=== PATIENT | male | born 1970 | race Hispanic/Latino ===

== ENCOUNTER 2020-03-31 19:17 | Emergency (ER) | payer SELFPAY ==
[2020-03-31] MEDS ORDERED: FAMOTIDINE 20 MG/2 ML VIAL IV ONE (19:52)
[2020-03-31] MEDS ORDERED: MORPHINE 2 MG/ML SYR ONE (19:52)
[2020-03-31] MEDS ORDERED: ONDANSETRON 4 MG/2 ML VIAL ONE (19:52)
[2020-03-31] MEDS ORDERED: NA CHLORIDE 0.9% 1,000 ML ONE ×3 (19:52→22:36)
[2020-03-31 20:21] LABS: Absolute Lymphocytes (CBC) 0.9 K/uL (0.7-4.9); Basophils % 0.2 % (0-1.3); Hematocrit 40.6 % (39.6-49.0); Lymphocytes % 6.4 % (15.3-44.8); RBC Red Blood Cell Count 4.83 M/uL (4.33-5.43)
--- NOTE | 2020-03-31 21:16 | RAD REPORT ---
EXAM DESCRIPTION: CT - Abdomen Pelvis W Contrast - 03/31/2020 9:00 pm CLINICAL HISTORY: Abdominal pain COMPARISON: none. TECHNIQUE: Computed axial tomography of the abdomen pelvis was obtained. 100 cc Isovue-300 was admin istered intravenously. Oral contrast was not requested which limits evaluation of bowel. All CT scans are performed using dose optimization technique as appropriate and may include automated exposure control or mA/KV adjustment according to patient size. FINDINGS: Marked stranding adjacent to the pancreatic head, neck and proximal body. Small amount of ill-defined fluid. The pancreatic head is inhomogeneous. 18 millimeter area of low signal within the pancreatic tail may indicate a small area of necrosis. Cholecystectomy. Upper abdominal varices Liver, spleen, adrenals and kidneys unremarkable No evidence diverticulitis. IMPRESSION: Marked pancreatitis
[2020-03-31 21:49] LABS: ALT/SGPT 73 U/L (12-78); AST/SGOT 121 U/L (15-37); Albumin 4.2 g/dL (3.4-5.0); Alkaline Phosphatase 162 U/L (45-117); BUN Blood Urea Nitrogen 10 mg/dL (7-18); Bicarbonate 24 mmol/L (21-32); Bilirubin Direct 0.7 mg/dL (0-0.2); Bilirubin Total 1.2 mg/dL (0.2-1.0); Glucose Level 349 mg/dL (74-106); Lipase 2486 U/L (73-393); Potassium 4.3 mmol/L (3.5-5.1); Protein, Total 8.4 g/dL (6.4-8.2); Sodium Level 136 mmol/L (136-145)
--- NOTE | 2020-03-31 22:04 | ER ---
Nurse's Notes [facility] Name: Robert Mcmahan Age: 49 yrs Sex: Male : 1970 Arrival Date: 03/31/2020 Time: 19:21 Bed 6 Private MD: Diagnosis: Acute pancreatitis Presentation: 03/31 19:29 Chief complaint: Patient states: Upper abd. pain with N/V began this morning. History ll1 of pancreatitis. Coronavirus screen: Client denies travel out of the [place] in the last 14 days. nausea, At this time, the client does not indicate any symptoms associated with coronavirus-19. Ebola Screen: Patient denies travel to an Ebola-affected area in the 21 days before illness onset. Initial Sepsis Screen: Does the patient meet any 2 criteria? No. Patient's initial sepsis screen is negative. Does the patient have a suspected source of infection? Yes: Acute abdominal pain. Risk Assessment: Do you want to hurt yourself or someone else? Patient reports no desire to harm self or others. Onset of symptoms was March 31, 2020. 19:29 Method Of Arrival: Ambulatory ll1 19:29 Acuity: TRAE 3 ll1 Historical: - Allergies: 19:31 No Known Allergies; ll1 - PMHx: 19:31 Pancreatitis; diabetic; ll1 - PSHx: 19:31 Cholecystectomy; Appendectomy; ll1 - Immunization history:: Flu vaccine is not up to date. - Social history:: Smoking status: Patient denies any tobacco usage or history of. Screenin:53 Abuse screen: Denies threats or abuse. Nutritional screening: No deficits noted. ea Tuberculosis screening: No symptoms or risk factors identified. Fall Risk IV access (20 points). Assessment: 19:54 General: Appears uncomfortable, Behavior is appropriate for age. Pain: Complains of ea pain in epigastric area. Neuro: Level of Consciousness is awake, alert, obeys commands, Oriented to person, place, time, situation. Cardiovascular: Patient's skin is warm and dry. Respiratory: Airway is patent Respiratory effort is even, unlabored, Respiratory pattern is regular, symmetrical. GI: Bowel sounds present X 4 quads. Abd is soft and non tender X 4 quads. Derm: Skin is pink, warm \T\ dry. 20:41 Reassessment: Patient and/or family updated on plan of care and expected duration. Pain ea level reassessed. Patient is alert, oriented x 3, equal unlabored respirations, skin warm/dry/pink. 21:43 Reassessment: Patient and/or family updated on plan of care and expected duration. Pain ea level reassessed. Patient is alert, oriented x 3, equal unlabored respirations, skin warm/dry/pink. 22:50 Reassessment: Pt resting with eyes closed, respirations even and unlabored, chest ea expansions even and symmetrical. No s/s of pain or discomfort at this time. 23:20 Reassessment: Report given to Noah at [facility]. Awaiting on EMS for transportation. ea 04/01 00:00 Reassessment: Patient and/or family updated on plan of care and expected duration. Pain ea level reassessed. Patient is alert, oriented x 3, equal unlabored respirations, skin warm/dry/pink. Pt transferred to [facility] ED via stretcher per [facility]. Pt tolerating well. Vital Signs: 03/31 19:29 BP 132 / 79; Pulse 86; Resp 17; Temp 97.9; Pulse Ox 100% ; Weight 104.33 kg (R); Height ll1 5 ft. 11 in. (180.34 cm); Pain 9/10; 20:41 BP 124 / 81; Pulse 88; Resp 18; Pulse Ox 97% ; ea 21:42 BP 131 / 85; Pulse 96; Resp 18; Pulse Ox 96% on R/A; ea 22:00 BP 132 / 80; Pulse 87; Resp 18; Pulse Ox 97% on R/A; ea 23:00 BP 125 / 75; Pulse 92; Resp 18; Temp 98; Pulse Ox 94% ; ea 19:29 Body Mass Index 32.08 (104.33 kg, 180.34 cm) ll1 ED Course: 19:21 Patient arrived in ED. cl3 19:25 Isreal Murphy PA is PHCP. cp 19:25 Cas Candelario MD is Attending Physician. cp 19:30 Triage completed. ll1 19:30 Arm band placed on Patient placed in an exam room, on a stretcher. ll1 19:35 Mary Lora, FRANCINE is Primary Nurse. ea 19:42 Inserted saline lock: 20 gauge in right antecubital area, using aseptic technique. ea Blood collected. 19:53 Patient has correct armband on for positive identification. Bed in low position. Call ea light in reach. Side rails up X2. Pulse ox on. NIBP on. 21:00 CT Abd/Pelvis - IV Contrast Only In Process Unspecified. EDMS 22:02 Initiated transfer at [facility] with Alissa Centeno. tt3 22:36 Alissa called back with their physician to speak with MOJGAN Franco, regarding the tt3 transfer request. 23:00 Alissa Centeno called back with administrative approval. The accepting physician is Dr. franc Escobedo. The pt is going to Bed 1505. Face sheet faxed to per Alissa's request. Nurse to call report to [phone]. 23:24 No provider procedures requiring assistance completed. Patient transferred, IV remains ea in place. Administered Medications: Discontinued: NS 0.9% 1000 ml IV at 125 ml/hr continuous 19:45 Drug: Pepcid 20 mg Route: IVP; Site: right antecubital; ea 20:55 Follow up: Response: No adverse reaction ea 19:46 Drug: Zofran (Ondansetron) 4 mg Route: IVP; Site: right antecubital; ea 20:55 Follow up: Response: No adverse reaction ea 19:48 Drug: morphine 2 mg {Note: rass 0.} Route: IVP; Site: right antecubital; ea 20:55 Follow up: Response: No adverse reaction; Pain is decreased ea 19:50 Drug: NS 0.9% 1000 ml Route: IV; Rate: 1 bolus; Site: right antecubital; ea 20:55 Follow up: Response: No adverse reaction; IV Status: Completed infusion; IV Intake: ea 1000ml 22:17 Drug: NS 0.9% 1000 ml Route: IV; Rate: 1 bolus; Site: right antecubital; ea 23:08 Follow up: Response: No adverse reaction; IV Status: Completed infusion; IV Intake: ea 1000ml 22:17 Drug: Zosyn 3.375 grams Route: IVPB; Infused Over: 60 mins; Site: right antecubital; ea 23:23 Follow up: Response: No adverse reaction; IV Status: Completed infusion; IV Intake: ea 100ml 22:25 Drug: NS 0.9% 1000 ml Route: IV; Rate: 125 ml/hr; Site: right antecubital; rr5 22:26 Drug: morphine 4 mg {Note: rass 0.} Route: IVP; Site: right antecubital; rr5 23:08 Follow up: Response: No adverse reaction ea 22:54 Drug: Lactated Ringers Solution 1000 ml Route: IV; Rate: 250 ml/hr; Site: right ea antecubital; 04/01 00:02 Follow up: Response: No adverse reaction; IV Status: Infusion continued upon transfer ea Intake: 03/31 20:55 IV: 1000ml; Total: 1000ml. ea 23:08 IV: 1000ml; Total: 2000ml. ea 23:23 IV: 100ml; Total: 2100ml. ea Output: 23:20 Urine: 800ml (Voided); Total: 800ml. rr5 Outcome: 22:03 ER care complete, transfer ordered by MD. rex 23:24 Instructed on the need for transfer, Demonstrated understanding of instructions. ea 04/01 00:00 Transferred by ground EMS to [facility], Transfer form completed. ea Condition: stable 00:02 Patient left the ED. ea Signatures: Dispatcher [employer] EDMS Isreal Murphy PA PA cp Antunez, Elena, RN RN ea Roque, Raymond, RN RN rr5 Jean Claude Friedman cl3 Chi Friedman RN RN ll1 Hugh Parry tt3 Corrections: (The following items were deleted from the chart) 03/31 19:52 19:48 morphine 2 mg IVP in right antecubital ea ea
--- NOTE | 2020-03-31 22:04 | EDPHYS ---
Physician Documentation [facility] Name: Robert Mcmahan Age: 49 yrs Sex: Male : 1970 Arrival Date: 03/31/2020 Time: 19:21 Bed 6 Private MD: ED Physician Cas Candelario HPI: 03/31 19:38 This 49 yrs old Male presents to ER via Ambulatory with complaints of cp Abdominal Pain. 19:38 The patient presents with abdominal pain in the upper abdomen. Onset: The cp symptoms/episode began/occurred this morning. The symptoms do not radiate. Associated signs and symptoms: Pertinent positives: nausea and vomiting, Pertinent negatives: chest pain, constipation, diarrhea, dysuria, fever, hematuria, shortness of breath. Severity of pain: in the emergency department the pain is unchanged. The patient has experienced similar episodes in the past, multiple times, today's symptoms are similar, to when the patient was apparently diagnosed with pancreatitis. Historical: - Allergies: 19:31 No Known Allergies; ll1 - PMHx: 19:31 Pancreatitis; diabetic; ll1 - PSHx: 19:31 Cholecystectomy; Appendectomy; ll1 - Immunization history:: Flu vaccine is not up to date. - Social history:: Smoking status: Patient denies any tobacco usage or history of. ROS: 19:40 Eyes: Negative for injury, pain, redness, and discharge. cp 19:40 Constitutional: Negative for body aches, chills, fever, poor PO intake. 19:40 Cardiovascular: Negative for chest pain. 19:40 Respiratory: Negative for cough, shortness of breath, wheezing. 19:40 Abdomen/GI: Positive for abdominal pain, nausea and vomiting, Negative for diarrhea, constipation, black/tarry stool, rectal bleeding. 19:40 Back: Negative for pain at rest, pain with movement. 19:40 Neuro: Negative for altered mental status, headache, weakness. 19:40 All other systems are negative. Exam: 19:41 Head/Face: Normocephalic, atraumatic. cp 19:41 Constitutional: The patient appears in no acute distress, alert, awake, non-diaphoretic, non-toxic, well developed, well nourished. 19:41 Eyes: Periorbital structures: appear normal, Conjunctiva: normal, no exudate, no injection, Sclera: no appreciated abnormality, Lids and lashes: appear normal, bilaterally. 19:41 ENT: External ear(s): are unremarkable, Nose: is normal, Mouth: Lips: moist, Oral mucosa: moist, Posterior pharynx: Airway: no evidence of obstruction, patent. 19:41 Chest/axilla: Inspection: normal, Palpation: is normal, no crepitus, no tenderness. 19:41 Cardiovascular: Rate: normal. 19:41 Respiratory: the patient does not display signs of respiratory distress, Respirations: normal, no use of accessory muscles, no retractions, labored breathing, is not present, Breath sounds: are clear throughout, no decreased breath sounds. 19:41 Abdomen/GI: Inspection: abdomen appears normal, Bowel sounds: active, all quadrants, Palpation: soft, in all quadrants, moderate abdominal tenderness, in the epigastric area, rebound tenderness, is not appreciated, involuntary guarding, is not appreciated. 19:41 Back: pain, is absent, ROM is normal. Vital Signs: 19:29 BP 132 / 79; Pulse 86; Resp 17; Temp 97.9; Pulse Ox 100% ; Weight 104.33 kg (R); Height ll1 5 ft. 11 in. (180.34 cm); Pain 9/10; 20:41 BP 124 / 81; Pulse 88; Resp 18; Pulse Ox 97% ; ea 21:42 BP 131 / 85; Pulse 96; Resp 18; Pulse Ox 96% on R/A; ea 22:00 BP 132 / 80; Pulse 87; Resp 18; Pulse Ox 97% on R/A; ea 23:00 BP 125 / 75; Pulse 92; Resp 18; Temp 98; Pulse Ox 94% ; ea 19:29 Body Mass Index 32.08 (104.33 kg, 180.34 cm) ll1 MDM: 19:29 Patient medically screened. 22:05 Data reviewed: vital signs, nurses notes, lab test result(s), radiologic studies, CT cp scan, I have discussed the patient's presentation/case with the attending Emergency Department Physician;. 22:05 Physician consultation: Tu ULRICH was contacted at 22:05, regarding admission, to the medical/surgical unit. after a discussion of the case, a recommendation for transfer for higher level of care is made. 23:00 Physician consultation: was contacted at 22:45, regarding regarding transfer, to [facility]. accepting physician will be DR Escobedo, hospitalist, with consulting GI physician DR Vaughn. 03/31 19:34 Order name: Basic Metabolic Panel 03/31 19:34 Order name: CBC with Diff 03/31 19:34 Order name: Hepatic Function; Complete Time: 21:52 03/31 19:34 Order name: Lipase; Complete Time: 21:52 03/31 19:34 Order name: Basic Metabolic Panel; Complete Time: 21:52 EDMS 03/31 19:35 Order name: CBC with Automated Diff; Complete Time: 21:19 EDMS 03/31 21:19 Interpretation: Normal except: WBC 13.8; MCHC 40.7; LEXI% 88.4; LYM% 6.4; NEUT A 12.2. 03/31 19:35 Order name: CT Abd/Pelvis - IV Contrast Only; Complete Time: 21:19 03/31 21:19 Interpretation: Report reviewed. 03/31 21:53 Order name: Lactate 03/31 21:53 Order name: Lactate; Complete Time: 22:37 EDMS 03/31 19:34 Order name: IV Saline Lock; Complete Time: 19:53 03/31 19:34 Order name: Labs collected and sent; Complete Time: 19:53 cp Administered Medications: Discontinued: NS 0.9% 1000 ml IV at 125 ml/hr continuous 19:45 Drug: Pepcid 20 mg Route: IVP; Site: right antecubital; ea 20:55 Follow up: Response: No adverse reaction ea 19:46 Drug: Zofran (Ondansetron) 4 mg Route: IVP; Site: right antecubital; ea 20:55 Follow up: Response: No adverse reaction ea 19:48 Drug: morphine 2 mg {Note: rass 0.} Route: IVP; Site: right antecubital; ea 20:55 Follow up: Response: No adverse reaction; Pain is decreased ea 19:50 Drug: NS 0.9% 1000 ml Route: IV; Rate: 1 bolus; Site: right antecubital; ea 20:55 Follow up: Response: No adverse reaction; IV Status: Completed infusion; IV Intake: ea 1000ml 22:17 Drug: NS 0.9% 1000 ml Route: IV; Rate: 1 bolus; Site: right antecubital; ea 23:08 Follow up: Response: No adverse reaction; IV Status: Completed infusion; IV Intake: ea 1000ml 22:17 Drug: Zosyn 3.375 grams Route: IVPB; Infused Over: 60 mins; Site: right antecubital; ea 23:23 Follow up: Response: No adverse reaction; IV Status: Completed infusion; IV Intake: ea 100ml 22:25 Drug: NS 0.9% 1000 ml Route: IV; Rate: 125 ml/hr; Site: right antecubital; rr5 22:26 Drug: morphine 4 mg {Note: rass 0.} Route: IVP; Site: right antecubital; rr5 23:08 Follow up: Response: No adverse reaction ea 22:54 Drug: Lactated Ringers Solution 1000 ml Route: IV; Rate: 250 ml/hr; Site: right ea antecubital; 04/01 00:02 Follow up: Response: No adverse reaction; IV Status: Infusion continued upon transfer ea Disposition: 03:28 Co-signature as Attending Physician, Cas Candelario MD. [email or web address] Disposition: 03/31/20 22:03 Transfer ordered to [facility]. Diagnosis is Acute pancreatitis. - Reason for transfer: Higher level of care. - Accepting physician is Doctor. - Condition is Stable. - Problem is new. - Symptoms have improved. Signatures: Dispatcher [employer] EDMS Isreal Murphy PA PA cp Antunez, Elena, RN RN ea Roque, Raymond, RN RN rr5 Chi Friedman RN RN 1 Cas Candelario MD MD [email or web address] Corrections: (The following items were deleted from the chart) 00:02 12 22:03 03/31/2020 22:03 Transfer ordered to [facility]. ea Diagnosis is Acute pancreatitis. Reason for transfer: Higher level of care. Accepting physician is Doctor. Condition is Stable. Problem is new. Symptoms have improved. cp
[2020-03-31] MEDS ORDERED: PIPER/TAZO/NS 3.375gm 3.375 GM/100 ML BAG ONE ×2 (22:19→22:24)
[2020-03-31] MEDS ORDERED: MORPHINE 4 MG/ML SYR ONE (22:36)
[2020-03-31] MEDS ORDERED: Ringers Lactate 1,000 ML IV ONE (23:01)
[2020-04-03 18:56] VITALS: BP 125/75; TEMP 98; O2SAT 94
== END 2020-04-01 00:02 | disposition short-term general hospital (02) ==
LOC: ER 19:17
DX: K85.90 Acute pancreatitis without necrosis or infection, unspecified (principal)
CPT/HCPCS: 36415; 74177; 80048; 80076; 82565; 83605; 83690; 85025; 96361; 96365; 96375; 99285; J2270; J2405; J2543; J7030; J7120; Q9967